=== PATIENT | female | born 1985 | race Caucasian/White ===

== ENCOUNTER 2016-08-24 23:52 | Emergency (ER) | payer SELFPAY ==
[~2016-08-24] VITALS: Ht 160 cm; Wt 70.5 kg
[2016-08-24 23:55] VITALS: Ht 160 cm; Wt 70.5 kg
[2016-08-25] MEDS ORDERED: CYCL-319 PO (00:43)
[2016-08-25] MEDS ORDERED: IBUP-1542 PO (00:43)
[2016-08-25] MEDS ORDERED: HYDR-906 PO (00:43)
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
== END 2016-08-25 01:00 | disposition home or self-care (01) ==
LOC: FTE 23:52
DX: S60.221A Contusion of right hand, initial encounter (principal); S90.32XA Contusion of left foot, initial encounter; S39.012A Strain of muscle, fascia and tendon of lower back, initial encounter; V49.40XA Driver injured in collision with unspecified motor vehicles in traffic accident, initial encounter
CPT/HCPCS: 99284